=== PATIENT | female | born 1950 | race Caucasian/White ===

== ENCOUNTER 2017-11-05 07:44 | Inpatient (IN) | payer OTHER, BC ==
--- NOTE | 2017-10-22 13:02 | DIAGNOSTIC IMAGING REPORT ---
CHEST 2 VIEWS ROUTINE CLINICAL HISTORY: 67 years-old Female presenting with PRE OP TESTING, PT WENT TO LAB/SEND TO [facility]. TECHNIQUE: PA and lateral views of the chest were obtained. COMPARISON: None. FINDINGS: Atherosclerosis of the aortic arch. Cardiac silhouette normal in size. Biapical pleural parenchymal scarring greater on the right. Mildly coarsened lung markings. No focal opacity. No large effusion or pneumothorax. Osseous structures normal. Upper abdomen normal. IMPRESSION: 1. No acute cardiopulmonary disease. Electronically signed by: John Burton M.D. 10/22/2017 1:00 PM Dictated Date/Time: 10/22/2017 12:59 PM
[2017-10-22 13:12] LABS: BASO % 0.7 %; BASO ABS # 0.05 K/uL (0-0.2); EOS % 2.2 %; EOS ABS # 0.15 K/uL (0-0.5); HEMATOCRIT 41.6 % (37-47); HEMOGLOBIN 14.8 g/dL (12.0-16.0); IG# 0.02 K/uL (0.00-0.02); LYMPH % 30.8 %; LYMPH ABS # 2.14 K/uL (1.2-3.4); MEAN CELL VOLUME 94.1 fL (80-100); MEAN CORPUSCULAR HEMOGLOBIN 33.5 pg (25-34); MEAN CORPUSCULAR HGB CONC 35.6 g/dl (32-36); MEAN PLATELET VOLUME 8.6 fL (7.4-10.4); MONO % 5.8 %; NEUT % 60.2 %; NEUT ABS # 4.18 K/uL (1.4-6.5); PLATELET COUNT 217 K/uL (130-400); RED CELL DISTRIBUTION WIDTH CV 12.8 % (11.5-14.5); RED CELL DISTRIBUTION WIDTH SD 44.2 fL (36.4-46.3); WHITE BLOOD COUNT 6.94 K/uL (4.8-10.8)
[2017-10-22 13:43] LABS: BLOOD UREA NITROGEN 14 mg/dl (7-18); CALCIUM 8.9 mg/dl (8.5-10.1); CARBON DIOXIDE 28 mmol/L (21-32); CREATININE 0.72 mg/dl (0.60-1.20); GLUCOSE 99 mg/dl (70-99); POTASSIUM 3.2 mmol/L (3.5-5.1); SODIUM 143 mmol/L (136-145)
[2017-10-26 08:37] VITALS: BMI 23.0
[2017-11-05] VITALS (12 sets, daily range): BP systolic 126–164; BP diastolic 47–101; PULSE 56–92; TEMP 36.4–36.8; O2SAT 91–99; Ht 162.6 cm; Wt 60.5 kg
[~2017-11-05] VITALS: Ht 162.6 cm; Wt 60.5 kg
[~2017-11-05 07:44] MED LIST: ACET1TAB84 PO; ASPI81TA28 PO; CALC600T9 PO; CITA20TA4 PO; CTP/1 PO; DICL-201 PO; DILT120C68 PO; DIPH25CA94 PO; ENALAPRIL PO; ESTR1 PO; FERR1TAB13 PO; FLUT0.15 INTNAS; GABA-113 PO; LACTATED RINGER'S 1000ML 1,000 ML IV SCH; LEVO125T5 PO; PRLSR20 PO; TRAM-10 PO
[2017-11-05] MEDS ORDERED: CeleBREX 200 MG CAP PO STA (08:02)
[2017-11-05] MEDS ORDERED: GABAPENTIN 300 MG CAP PO STA (08:02)
[2017-11-05] MEDS ORDERED: ACETAMINOPHEN 500 MG TAB PO STA (08:02)
[2017-11-05] MEDS ORDERED: CEFAZOLIN 1000MG IV PUSH 7.5 ML IV STA (08:02)
[2017-11-05] MEDS ORDERED: NURSING VERBAL MED ORDER ONE (09:00)
[2017-11-05] MEDS ORDERED: PHENYLEPHRINE 100MCG/ML 5ML SYR IV PRN (09:00)
[2017-11-05] MEDS ORDERED: ATROPINE SULFATE 0.1 MG/ML 5ML SYR IV PRN (09:00)
[2017-11-05] MEDS ORDERED: ONDANSETRON INJ 2 MG/ML 2 ML VIAL IV PRN ×2 (09:00→13:30)
[2017-11-05] MEDS ORDERED: HYDROmorphone INJ 0.5 MG/0.5 ML SYR IV PRN (09:00)
[2017-11-05] MEDS ORDERED: EpHEDrine SULFATE INJ 50 MG/ML AMP IV PRN (09:00)
[2017-11-05] MEDS ORDERED: MIDAZOLAM HCL 1 MG/ML 2ML VIAL ONE (10:38)
[2017-11-05] MEDS ORDERED: FENTANYL CITRATE INJ 50 MCG/1 ML 2 ML VIAL ONE ×3 (10:39→12:39)
--- NOTE | 2017-11-05 10:55 | History & Physical Bridge Note ---
H&P Re-Evaluation Bridge Note: I have examined the patient, reviewed the History & Physical and in the interval since the performance of the History & Physical I have noted the following changes of clinical significance: No changes noted
--- NOTE | 2017-11-05 10:56 | History and Physical ---
History & Physical Date November 05, 2017. Chief Complaint Back and leg pain History of Present Illness The patient is a 67 year old female with complaints of back and leg pain Additional History Hepatic Disease: No Endocrine Disorder: No Kidney Disease: No Hypertension: Yes Heart Disease: No Bleeding Tendencies: No Infectious Diseases: No Allergies Coded Allergies: No Known Allergies (Unverified , 11/05/17) Home Medications Scheduled Acetaminophen (Tylenol Arthritis Ext Rel), 650 MG PO BID Aspirin (Aspirin Ec), 81 MG PO HS Calcium Carbonate-Vitamin D (Calcium + D), 1 TAB PO BID Citalopram Hydrobromide (Citalopram Hydrobromide), 0.5 TAB PO QAM Clonidine Hcl (Catapres), 0.1 MG PO BID Diclofenac (Voltaren), 75 MG PO BID Diltiazem Hcl Ext Rel (Tiazac), 120 MG PO BID Diphenhydramine Hcl (Aler-Cap), 25 MG PO BID Estradiol (Estrace), 1 MG PO QAM Ferrous Sulfate (Kp Ferrous Sulfate), 1 TAB PO QAM Gabapentin (Neurontin), 300 MG PO BID Levothyroxine Sodium (Levothyroxine Sodium), 1 TAB PO QAM Omeprazole (Prilosec), 40 MG PO QAM Tramadol (Ultram), 50 MG PO Q6H [Enalapril], 20 MG PO BID Scheduled PRN Fluticasone Propionate (Nasal) (Flonase Allergy Relief), 2 SPRAYS INTNAS QAM PRN for RN Physical Examination Skin: warm/dry, no rash Eyes: normal inspection, EOMI, sclerae normal ENT: normal ENT inspection, pharynx normal Head: normocephalic, atraumatic Neck: supple, no adenopathy, trachea midline Respiratory/Chest: lungs clear, normal breath sounds, no respiratory distress Cardiovascular: regular rate, rhythm, no edema, no murmur Abdomen / GI: normal bowel sounds, non tender Back: normal inspection Extremities: normal inspection, normal range of motion Neurologic/Psych: no motor/sensory deficits, alert, normal reflexes, oriented x 3 Diagnosis Lumbar spinal stenosis with neurogenic claudication and spondylolisthesis Plan of Treatment TLIF L4-S1
[2017-11-05] MEDS ORDERED: BUPIVACAINE 0.25% 30 ML VIAL ONE (11:15)
[2017-11-05] MEDS ORDERED: BACITRACIN 50000 UNIT VIAL ONE (11:15)
[2017-11-05] MEDS ORDERED: EpINEphrine INJ 1MG/ML AMP 1 MG/ML AMP ONE (11:16)
[2017-11-05] MEDS ORDERED: HYDROmorphone INJ 2 MG/ML SYR/VIAL ONE ×3 (12:01→14:00)
[2017-11-05] MEDS ORDERED: FLOSEAL HEMOSTATIC MATRIX 10ML TOP ONE (13:09)
[2017-11-05] MEDS ORDERED: LIDOCAINE HCL 2% 2 ML VIAL (20MG/ML) ONE (13:17)
[2017-11-05] MEDS ORDERED: DEXAMETHASONE SOD INJ 4 MG/ML VIAL ONE (13:17)
[2017-11-05] MEDS ORDERED: EpHEDrine SULFATE 50MG/5ML SYR ONE (13:17)
[2017-11-05] MEDS ORDERED: PROPOFOL IV EMULSION 10 MG/ML 20 ML VIAL ONE (13:17)
[2017-11-05] MEDS ORDERED: ROCURONIUM BROMIDE 10 MG/ML 5 ML VIAL ONE (13:17)
[2017-11-05] MEDS ORDERED: ONDANSETRON INJ 2 MG/ML 2 ML VIAL ONE (13:17)
[2017-11-05] MEDS ORDERED: NEOSTIGMINE METHYLSULFATE 1 MG/ML 10ML VIAL ONE (13:17)
[2017-11-05] MEDS ORDERED: GLYCOPYRROLATE INJ 0.2 MG/ML VIAL ONE (13:17)
[2017-11-05] MEDS ORDERED: SODIUM CHLORIDE 0.9% 1000ML 1,000 ML IV SCH (13:18)
--- NOTE | 2017-11-05 13:18 | [facility] Operative Report ---
Operative Report Operative Date November 05, 2017. Pre-Operative Diagnosis Lumbar spinal stenosis with neurogenic claudication and spondylolisthesis Post-Operative Diagnosis Same Procedure(s) Performed 1. Lumbar decompression medial facetectomies foraminotomies L3-4 L4-5 L5-S1. #2 posterior spinal fusion L4-5 L5-S1. #3 placement posterior segmental instrumentation L4-5 L5-S1. #4 interbody fusion L5-S1. #5 placement of titanium 9 x 26 mm cage L5-S1. #6 placement of locally harvested autograft in the posterior gutters. #7 placement InFUSE collagen sponge combined with master graft in the posterior gutters and ostial amp in the interbody space. Surgeon Dr. Olguin Export Clerk Surgeon(s) SARWAT Deras Estimated Blood Loss 250 Findings Severe spinal stenosis with far lateral herniated nucleus pulposus L5-S1 on the left Specimens none per surgeon Description of Procedure Patient was met with preoperatively case discussed all questions addressed. After informed consent obtained patient was taken to the operative suite underwent intubation and placed in a prone position the [facility] tablets frame. All bony promises well-padded I suspected to ensure no external pressure placed upon the. This point lumbar spine was prepped and draped in a sterile fashion. Sharp dissection with the assistance Bovie cautery was performed down to and exposing the lamina transposes L4-5 and sacral ala bilaterally. From caudocephalad fashion complete laminectomy of L5 L4 partial laminectomy of L3 is performed addressing severe lateral recess and foraminal disease. Pedicle screws were then placed in L4 L5-S1 levels bilaterally with the assistance of fluoroscopy. The probe size aimee was placed. Through a transforaminal approach on the left complete discectomy was performed in place scheduled subcortical bleeding bone and a 9 x 22 mm titanium cage filled with ostium bone graft tapped in position. Rods were then compressed locked into final position bilaterally. The transverse processes of all 4 L5 the sacral ala burred to subcortical bleeding bone. Infuse collagen sponge mesh graft and local autograft placed posterior gutters. 15 round TAM drain inserted. Incision was then closed with 1 Vicryl fascia 2-0 Vicryl substantially 4-0 Monocryl for final skin closure. Steri-Strips sterile dressing placed. Patient will continue PACU stable discrete please note Ana Laura Art present throughout the entire procedure involved in patient positioning complex portions of the surgery and fashion closure. I attest to the content of the Intraoperative Record and any orders documented therein. Any exceptions are noted below.
--- NOTE | 2017-11-05 13:20 | DIAGNOSTIC IMAGING REPORT ---
LUMBAR SPINE 2 OR 3 VIEW CLINICAL HISTORY: L4-S1 TRANSFORAMINAL LUMBAR INTERBODY FUSION COMPARISON STUDY: No previous studies for comparison. Fluoroscopy time: 18 seconds. FINDINGS: 2 fluoroscopic images demonstrate an L5-S1 discectomy with interbody spacer placement. Posterior decompression is noted. There are bilateral pedicle screws at the L4, L5 and S1 levels with interconnecting rods. IMPRESSION: Fluoroscopic images demonstrating an L5-S1 discectomy and L4-S1 bilateral pedicle screw fusion. Electronically signed by: Rob Zacarias M.D. 11/05/2017 1:19 PM Dictated Date/Time: 11/05/2017 1:18 PM
[2017-11-05] MEDS ORDERED: FLUTICASONE PROPIONATE NA SPR 16 GM BTL PRN (13:30)
[2017-11-05] MEDS ORDERED: LORAZEPAM 0.5 MG TAB PO PRN (13:30)
[2017-11-05] MEDS ORDERED: DO NOT ADMINISTER PNEUMOCOCCAL VACCINE PRN (13:30)
[2017-11-05] MEDS ORDERED: ALUMINUM/MAGNESIUM SUSP 30 ML UDC PO PRN (13:30)
[2017-11-05] MEDS ORDERED: ACETAMINOPHEN IV 100 ML IV PRN (13:30)
[2017-11-05] MEDS ORDERED: BISACODYL 10 MG SUPP PR PRN (13:30)
[2017-11-05] MEDS ORDERED: PROMETHAZINE HCL INJ 12.5 MG in SODIUM CHLORIDE 0.9% 50ML 50 ML IV PRN (13:30)
[2017-11-05] MEDS ORDERED: MAGNESIUM HYDROXIDE SUSP 30 ML UDC PO PRN (13:30)
[2017-11-05] MEDS ORDERED: DO NOT ADMINISTER FLU VACCINE PRN (13:30)
[2017-11-05] MEDS ORDERED: ACETAMINOPHEN 500 MG TAB PO PRN (13:30)
[2017-11-05] MEDS ORDERED: hydrOXYzine HCL 25 MG TAB PO PRN (13:30)
[2017-11-05] MEDS ORDERED: SOD PHOSPHATE/SOD BIPHOSPHATE ENEMA 132 ML BTL PR PRN (13:30)
[2017-11-05] MEDS ORDERED: METOCLOPRAMIDE HCL INJ 5 MG/ML 2 ML VIAL IV PRN (13:30)
[2017-11-05] MEDS ORDERED: NALOXONE HCL 0.4 MG/1 ML VIAL/CARP IV PRN ×2 (13:30)
[2017-11-05] MEDS ORDERED: LORAZEPAM INJ 0.5 MG in SYRINGE 0 ML IV PRN (13:30)
[2017-11-05] MEDS ORDERED: FAMOTIDINE 20 MG TAB PO PRN (13:30)
[2017-11-05] MEDS ORDERED: HYDROmorphone HCL 0.5MG/ML 50 ML CASSETTE ONE (13:32)
--- NOTE | 2017-11-05 14:15 | Anesthesiology Progress Note ---
Anesthesia Post Op Note Date & Time November 05, 2017 at 14:15 Vital Signs Pain Intensity: 4 Vital Signs Past 12 Hours Date Time Temp Pulse Resp B/P (MAP) Pulse Ox O2 Delivery O2 Flow Rate FiO2 11/05/17 13:50 66 16 165/76 99 Oxymask 10 11/05/17 13:40 66 16 139/91 99 Oxymask 10 11/05/17 13:30 36.7 68 14 143/71 100 Oxymask 10 11/05/17 08:16 94 Room Air 11/05/17 08:15 36.5 56 18 133/47 11/05/17 08:11 36.5 56 18 133/47 Notes Mental Status: alert / awake / arousable, participated in evaluation Pt Amnestic to Procedure: Yes Nausea / Vomiting: adequately controlled Pain: adequately controlled Airway Patency, RR, SpO2: stable & adequate BP & HR: stable & adequate Hydration State: stable & adequate Anesthetic Complications: no major complications apparent
[2017-11-05] MEDS: HYDROmorphone HCL 0.5MG/ML 50 ML CASSETTE IV PRN ×3 (14:43→23:10)
[2017-11-05] MEDS: TRAMADOL HCL 50 MG TAB PO SCH ×2 (16:00→22:00)
[2017-11-05] MEDS: SODIUM CHLORIDE 0.9% 1000ML 1,000 ML IV SCH ×2 (19:58→20:02)
[2017-11-05] MEDS: CEFAZOLIN IV 1,000 MG in SYRINGE 0 ML IV SCH (20:02)
[2017-11-05] MEDS: GABAPENTIN 300 MG CAP PO SCH (21:29)
[2017-11-05] MEDS: DOCUSATE SODIUM/SENNA 50/8.6MG TAB PO SCH (21:29)
[2017-11-05] MEDS: ASPIRIN 81 MG ECTAB PO SCH (21:29)
[2017-11-05] MEDS: ENALAPRIL MALEATE 10 MG TAB PO SCH (21:29)
[2017-11-05] MEDS: CLONIDINE HCL 0.1 MG TAB PO SCH (21:29)
[2017-11-05] MEDS: DILTIAZEM HCL 120 MG EXT REL CAP PO SCH (21:30)
[2017-11-06] MEDS: SODIUM CHLORIDE 0.9% 1000ML 1,000 ML IV SCH (02:35)
[2017-11-06 03:05] VITALS: BP 136/65; PULSE 78; TEMP 36.6; O2SAT 91
[2017-11-06] MEDS: TRAMADOL HCL 50 MG TAB PO SCH ×4 (04:00→21:52)
[2017-11-06] MEDS: CEFAZOLIN IV 1,000 MG in SYRINGE 0 ML IV SCH (04:21)
[2017-11-06] MEDS ORDERED: NURSING DECISION MEDICATION ORDER SCH (04:30)
[2017-11-06] MEDS: LEVOTHYROXINE 125 MCG TAB PO SCH (05:51)
[2017-11-06] MEDS ORDERED: DC PCA ONE (06:00)
[2017-11-06] MEDS ORDERED: OXYCODONE HCL IR 5 MG TAB (IMMEDIATE RELEASE) PO PRN (06:00)
[2017-11-06] MEDS ORDERED: HYDROmorphone INJ 0.5 MG/0.5 ML SYR IV PRN (06:00)
[2017-11-06 06:17] LABS: BASO % 0.1 %; BASO ABS # 0.01 K/uL (0-0.2); HEMATOCRIT 32.1 % (37-47); IG# 0.03 K/uL (0.00-0.02); LYMPH ABS # 0.59 K/uL (1.2-3.4); MEAN CELL VOLUME 94.4 fL (80-100); MEAN CORPUSCULAR HEMOGLOBIN 32.4 pg (25-34); MEAN CORPUSCULAR HGB CONC 34.3 g/dl (32-36); MEAN PLATELET VOLUME 8.4 fL (7.4-10.4); MONO % 5.9 %; MONO ABS # 0.69 K/uL (0.11-0.59); NEUT % 88.7 %; NEUT ABS # 10.44 K/uL (1.4-6.5); PLATELET COUNT 167 K/uL (130-400); RED CELL DISTRIBUTION WIDTH CV 12.8 % (11.5-14.5); RED CELL DISTRIBUTION WIDTH SD 44.2 fL (36.4-46.3); WHITE BLOOD COUNT 11.76 K/uL (4.8-10.8)
[2017-11-06 06:53] LABS: CALCIUM 7.9 mg/dl (8.5-10.1); CREATININE 0.67 mg/dl (0.60-1.20); POTASSIUM 3.9 mmol/L (3.5-5.1)
[2017-11-06 07:13] VITALS: BP 120/67; PULSE 71; TEMP 37; O2SAT 96
--- NOTE | 2017-11-06 08:31 | Anesthesiology Progress Note ---
Anesthesia Post Op Note Date & Time November 06, 2017 at 08:31 Vital Signs Pain Intensity: 3.0 Vital Signs Past 12 Hours Date Time Temp Pulse Resp B/P (MAP) Pulse Ox O2 Delivery O2 Flow Rate FiO2 11/06/17 07:27 Nasal Cannula 2.0 11/06/17 07:13 37.0 71 16 120/67 (84) 96 Nasal Cannula 2.0 11/06/17 03:05 36.6 78 18 136/65 (88) 91 Nasal Cannula 1.0 11/05/17 23:15 Room Air 11/05/17 23:06 36.6 71 18 138/68 (91) 91 Room Air 11/05/17 21:31 92 164/101 (122) Notes Mental Status: alert / awake / arousable, participated in evaluation Pt Amnestic to Procedure: Yes Nausea / Vomiting: adequately controlled Pain: adequately controlled Airway Patency, RR, SpO2: stable & adequate BP & HR: stable & adequate Hydration State: stable & adequate Anesthetic Complications: no major complications apparent
[2017-11-06] MEDS: ESTRADIOL 1 MG TAB PO SCH (08:44)
[2017-11-06] MEDS: CLONIDINE HCL 0.1 MG TAB PO SCH ×2 (08:44→21:21)
[2017-11-06] MEDS: DILTIAZEM HCL 120 MG EXT REL CAP PO SCH ×2 (08:44→21:21)
[2017-11-06] MEDS: PANTOprazole SOD 40 MG TAB PO SCH (08:44)
[2017-11-06] MEDS: GABAPENTIN 300 MG CAP PO SCH ×2 (08:45→21:21)
[2017-11-06] MEDS: ENALAPRIL MALEATE 10 MG TAB PO SCH ×2 (08:45→21:21)
[2017-11-06] MEDS: CITALOPRAM 20 MG TAB PO SCH (08:45)
--- NOTE | 2017-11-06 13:19 | Progress Note ---
Progress Note Date of Service November 06, 2017. Progress Note Patient's back pain is controlled her left leg symptoms markedly improved. Vital signs stable. On exam she is stable at the bedside is good strength testing appears comfortable. Assessment status post lumbar depression fusion per plan at this time we will initiate physical therapy and consider discharge home this weekend.
[2017-11-06 15:56] VITALS: BP 152/73; PULSE 68; TEMP 36.5; O2SAT 92
[2017-11-06 20:36] VITALS: BP 135/71; PULSE 80; TEMP 37; O2SAT 93
[2017-11-06] MEDS: DOCUSATE SODIUM/SENNA 50/8.6MG TAB PO SCH (21:20)
[2017-11-06] MEDS: ASPIRIN 81 MG ECTAB PO SCH (21:21)
[2017-11-06 23:39] VITALS: BP 130/68; PULSE 68; TEMP 37.4; O2SAT 90
[2017-11-07] MEDS: TRAMADOL HCL 50 MG TAB PO SCH ×2 (04:00→09:54)
[2017-11-07] MEDS: LEVOTHYROXINE 125 MCG TAB PO SCH (05:42)
[2017-11-07] MEDS: POLYETHYLENE (MIRALAX) 17 GM PACK PO SCH ×2 (05:43→12:00)
[2017-11-07 06:36] VITALS: BP 149/77; PULSE 71; TEMP 37.3; O2SAT 85
[2017-11-07 06:37] VITALS: O2SAT 93
[2017-11-07] MEDS: CITALOPRAM 20 MG TAB PO SCH (08:54)
[2017-11-07] MEDS: PANTOprazole SOD 40 MG TAB PO SCH (08:54)
[2017-11-07] MEDS: ESTRADIOL 1 MG TAB PO SCH (08:54)
[2017-11-07] MEDS: DILTIAZEM HCL 120 MG EXT REL CAP PO SCH (08:55)
[2017-11-07] MEDS: GABAPENTIN 300 MG CAP PO SCH (08:55)
[2017-11-07] MEDS: ENALAPRIL MALEATE 10 MG TAB PO SCH (08:55)
[2017-11-07] MEDS: CLONIDINE HCL 0.1 MG TAB PO SCH (09:51)
[2017-11-07] MEDS ORDERED: RXC5 PO (11:10)
--- NOTE | 2017-11-07 11:11 | Discharge Instructions ---
Discharge Instructions Date of Service November 07, 2017. Admission Reason for Admission: Lumbar Spinal Stenosis Discharge Discharge Diagnosis / Problem: lumbar stenosis Discharge Goals Goal(s): Improve function Activity Recommendations Activity Limitations: per Instructions/Follow-up section . Instructions / Follow-Up Instructions / Follow-Up ACTIVITY RECOMMENDATIONS: SELF CARE INSTRUCTIONS AFTER THORACIC/LUMBAR FUSIONS 1. You may walk to your tolerance. It is good exercise for your legs and back. Expect some back and intermittent leg aches and pains. 2. You may perform "counter-top" level activities (make a sandwich, marcello with a project, etc.). 3. No bending or lifting of more than 10 pounds or back twisting of any nature (roll like a log when turning in bed). 4. You may ride in a car for 20-30 minutes at a time. No driving until after your first visit with your doctor. 5. Frequent changes of position and restricting sitting to 30 minutes at a time will help limit the amount of back spasms and stiffness you may experience. 6. You may discontinue the use of ambulatory aids (cane, crutches, etc.) once your strength and confidence allow. 7. You may insurance processor the shower and let water strike your incision when you arrive home at least once daily. Do not take a tub bath, sit in a hot tub or go into a swimming pool until after your first recheck in the office. SPECIAL CARE INSTRUCTIONS: VERY IMPORTANT TO READ AND REVIEW A. Your surgical incision has been closed with a cosmetic suture under the skin that will dissolve in about 6 weeks. In 14 days, you can use a pair of clean scissors and cut the suture that is left outside of the skin at the ends of your incision. 1. The small skin tapes can be removed 7 days after surgery if they have not fallen off by that point. 2. You may keep the wound open to air as much as possible to promote healing after post-op day number 5 unless told otherwise by your doctor. 3. If you think the wound looks like it is becoming infected (redness or worsening drainage) and/or you are experiencing fever, chill or worsening back pain and muscle spasms, contact the office so that we may evaluate you as soon as possible. B. Complications are uncommon, but please contact us if you have any signs or symptoms of: 1. wound infection (fever higher than 102.5 degrees F, redness, separation of wound, drainage, or increasing pain from the incision) 2. blood clots in legs (pain, swelling, redness and warmth in legs) 3. urinary tract infection (fever higher than 102.5 degrees F, burning upon urination or increased frequency of urination) 4. nerve problems (inability to walk on your toes or heels, numbness, loss of bowel or bladder control) 5. any other symptoms that concern you C. Please call the office at if you have any concerns or questions about your operation or recovery. D. No smoking! Smoking drastically decreases the chance of a solid fusion. E. Do not take any anti-inflammatory medications (Indocin, Advil, Motrin, Aspirin, Naprosyn, etc.) as these may inhibit the chance of a solid fusion. Tylenol is okay to take for pain. MANAGING PAIN AFTER SPINAL SURGERY 1. Narcotic medication is intended for short-term use and will be provided for surgical pain. Surgical pain usually lasts for a period of 4-6 weeks. Narcotic medication includes Percocet, Vicodin, Darvocet, Tylenol #3 or Lortab. 2. Longer-term pain is more appropriately treated with non-narcotic medication such as Tylenol ES. 3. Muscle spasm is not appropriately treated with narcotics. Muscle relaxers such as Soma, Flexeril or Skelaxin can be used along with Tylenol ES. 4. Remember that we all live with some "aches and pains". This is not unusual or uncommon after an injury or as we get older. a. Back pain is expected and may include muscle spasms for 4 to 6 weeks after surgery. The pain should gradually improve. If the pain worsens for no apparent reason, please contact the office. b. Intermittent leg pain may also be experienced and should not be concerned about unless it worsens for no apparent reason. If so, please contact the office. 5. We will provide appropriate medication within the normal guidelines of their prescribed use. We will also be very cautious and aware of potential abuse and extended duration of patients' medication needs. a. Pain medications are for your comfort and to assist with sleep and rest so that the tissue can heal. They are not provided in order to return to normal activity and should not be used through the day. To do so or worsening pain at night can result from ongoing tissue damage and development of tolerance to the prescribed medicine. 6. Please allow 2-3 days to process refills. Prescriptions will not be mailed but must be picked up at the office. FOLLOW UP VISIT: Keep your scheduled follow-up appointment. Any questions, please call the office at . Current Hospital Diet Patient's current hospital diet: Regular Diet Discharge Diet Recommended Diet: Regular Diet Procedures Procedures Performed: 1. Lumbar decompression medial facetectomies foraminotomies L3-4 L4-5L5-S1. # 2 posterior spinal fusion L4-5 L5-S1. #3 placement posteriorsegmental instrumentation L4-5 L5-S1. #4 interbody fusion L5-S1. #5placement of titanium 9 x 26 mm cage L5-S1. #6 placement of locallyharvested autograft in the posterior gutters. #7 placement InFUSEcollagen sponge combined with master graft in the posterior gutters andostial amp in the interbody space. Pending Studies Studies pending at discharge: no Medical Emergencies . Who to Call and When: Medical Emergencies: If at any time you feel your situation is an emergency, please call 911 immediately. . Non-Emergent Contact Non-Emergency issues call your: Primary Care Provider . "Provider Documentation" section prepared by Mat Olguin. .
--- NOTE | 2017-11-07 11:18 | Discharge Summary ---
Orthopedic Discharge Summary Admission Date/Reason November 05, 2017 at 13:22 Lumbar Spinal Stenosis. Discharge Date/Disposition November 07, 2017 Home Diagnosis Principal Diagnosis: Lumbar spinal stenosis Admission Physical Exam As per Admitting History & Physical. Hospital Course Patient underwent lumbar depression fusion tolerated as well as taken to the orthopedic floor postoperatively. Postop day #1 she was up and amatory leg symptoms markedly improved progress status post 2 postop day #2 and subsequent discharge home. Discharge orders instructions found in the chart for further review. Discharge Instructions Please refer to the electronic Patient Visit Report (Discharge Instructions) for additional information.
[2017-11-07 12:08] VITALS: BP 149/77; PULSE 71; TEMP 37.3; O2SAT 93
== END 2017-11-07 12:41 | disposition home or self-care (01) | DRG 455 ==
LOC: C.ACU 07:44 → C.3E 13:22 → ENRESERV 13:47
PROVIDERS: ADMIT Orthopaedic Surgery Orthopaedic Surgery of the Spine; ATTEND Orthopaedic Surgery Orthopaedic Surgery of the Spine
PROC: 0ST40ZZ Resection of Lumbosacral Disc, Open Approach (ICD-10-PCS; principal; 2017-11-05 10:15)
PROC: 0SG0071 Fusion of Lumbar Vertebral Joint with Autologous Tissue Substitute, Posterior Approach, Posterior Column, Open Approach (ICD-10-PCS; principal; 2017-11-05 10:15)
PROC: 0SG30AJ Fusion of Lumbosacral Joint with Interbody Fusion Device, Posterior Approach, Anterior Column, Open Approach (ICD-10-PCS; principal; 2017-11-05 10:15)
PROC: 0SG3071 Fusion of Lumbosacral Joint with Autologous Tissue Substitute, Posterior Approach, Posterior Column, Open Approach (ICD-10-PCS; principal; 2017-11-05 10:15)
DX: M48.062 Spinal stenosis, lumbar region with neurogenic claudication (principal); M51.27 Other intervertebral disc displacement, lumbosacral region; M43.16 Spondylolisthesis, lumbar region; I10 Essential (primary) hypertension; E89.0 Postprocedural hypothyroidism; F32.9 Major depressive disorder, single episode, unspecified; M19.90 Unspecified osteoarthritis, unspecified site; F17.200 Nicotine dependence, unspecified, uncomplicated; Z85.828 Personal history of other malignant neoplasm of skin; Z79.1 Long term (current) use of non-steroidal anti-inflammatories (NSAID); Z79.82 Long term (current) use of aspirin; Z79.890 Hormone replacement therapy; Z79.891 Long term (current) use of opiate analgesic; Z79.899 Other long term (current) drug therapy; Z90.710 Acquired absence of both cervix and uterus; Z90.722 Acquired absence of ovaries, bilateral; Z90.79 Acquired absence of other genital organ(s); Z98.41 Cataract extraction status, right eye; Z98.42 Cataract extraction status, left eye; Z98.890 Other specified postprocedural states

== ENCOUNTER 2019-12-12 11:37 | Inpatient (IN) ==
[2019-11-29 11:30] LABS: Appearance Urine Clear (Clear); Bilirubin Urine Negative (Negative); Blood Urine Negative (Negative); Color Urine Yellow; Glucose Urine UA Negative (Negative); Ketones Urine Negative (Negative); Leukocyte Esterase Urine Negative (Negative); Nitrite Urine Negative (Negative); Protein Urine Negative (Negative); Specific Gravity Urine 1.018 (1.000-1.030); Urobilinogen Urine Negative (Negative); pH Urine 5.5 (4.5-7.5)
[2019-11-29 11:33] LABS: Basophils # (auto) 0.03 K/uL (0-0.2); Basophils % (auto) 0.4 %; Eosinophils # (auto) 0.08 K/uL (0-0.5); Eosinophils % (auto) 1.1 %; Hematocrit (blood only) 38.5 % (37-47); Hemoglobin 13.4 g/dL (12.0-16.0); Immature Granulocytes # (auto) 0.01 K/uL (0.00-0.02); Immature Granulocytes % (auto) 0.1 %; Lymphocytes # (auto) 1.58 K/uL (1.2-3.4); Lymphocytes % (auto) 22.3 %; Mean Corpuscular Hemoglobin 32.9 pg (25-34); Mean Corpuscular Hgb Conc 34.8 g/dL (32-36); Mean Corpuscular Volume 94.6 fL (80-100); Mean Platelet Volume 8.6 fL (7.4-10.4); Monocytes # (auto) 0.57 K/uL (0.11-0.59); Neutrophils # (auto) 4.82 K/uL (1.4-6.5); Neutrophils % (auto) 68.1 %; Platelet Count 183 K/uL (130-400); RDW Coefficient of Variation 13.9 % (11.5-14.5); RDW Standard Deviation 48.1 fL (36.4-46.3); Red Blood Count 4.07 M/uL (4.2-5.4); White Blood Count 7.09 K/uL (4.8-10.8)
[2019-11-29 11:42] LABS: Prothrombin Time 10.2 Seconds (9.0-12.0)
[2019-11-29 11:59] LABS: BUN Creatinine Ratio 25.1 (10-20); Blood Urea Nitrogen 16 mg/dl (7-18); Calcium 9.1 mg/dl (8.5-10.1); Carbon Dioxide 25 mmol/L (21-32); Chloride 109 mmol/L (98-107); Est GFR (African American) 105.3; Est GFR (Non-African American) 90.9; Glucose 81 mg/dl (70-99); Potassium 3.7 mmol/L (3.5-5.1); Sodium 140 mmol/L (136-145)
--- NOTE | 2019-12-08 10:31 | Anesthesiology Consultation ---
Date of Service December 08, 2019 Assessment & Plan (1) Encounter for pre-operative examination: COVID Status: As of 12/07 nurse assessment, patient denies travel to endemic area, known exposure/sick contacts, or symptoms of COVID19. Preoperative COVID19 testing completed on 12/06, results pending. Chart Review Chart Review: Acceptable Risk for Surgery and Patient NOT seen in Pre Admission Testing History Surgery Operation Date: 12/12/19 13:25 Proposed Procedures p L3-L4 Decompression, L3-L5 Fusion, L4-S1 Hardware Removal, Spinal Cord Monitoring - Mat Olguin, Height/Weight Height: 5 ft 5 in Weight: 60.781 kg Allergies Allergy/AdvReac Type Severity Reaction Status Date / Time No Known Allergies Allergy Unverified 12/08/19 08:50 Medications Home Medications Medication Instructions Recorded Confirmed Last Taken acetaminophen 650 mg PO Q12H 12/08/19 12/08/19 Unknown aspirin [Aspirin Low Dose] 81 mg PO HS 12/08/19 12/08/19 Unknown calcium carbonate-vitamin D3 1 tab PO BID 12/08/19 12/08/19 Unknown [Calcium 500 + D] citalopram 20 mg PO QAM 12/08/19 12/08/19 Unknown clonidine HCl 0.1 mg PO BID 12/08/19 12/08/19 Unknown diclofenac sodium 75 mg PO BID 12/08/19 12/08/19 Unknown diltiazem HCl 120 mg PO BID 12/08/19 12/08/19 Unknown diphenhydramine HCl 25 mg PO BID 12/08/19 12/08/19 Unknown enalapril maleate 20 mg PO BID 12/08/19 12/08/19 Unknown estradiol 1 mg PO DAILY 12/08/19 12/08/19 Unknown fluticasone propionate [Flonase 2 spray INTRANASAL QAM 12/08/19 12/08/19 Unknown Allergy Relief] levothyroxine 125 mcg PO QAM 12/08/19 12/08/19 Unknown omeprazole 40 mg PO QAM 12/08/19 12/08/19 Unknown oxycodone 5 mg PO BID PRN 12/08/19 12/08/19 Unknown Past Medical History Medical History Anxiety Chronic back pain Degenerative disc disease Depression GERD (gastroesophageal reflux disease) Hx of basal cell carcinoma Hx of squamous cell carcinoma of skin Hx of thyroid cancer Hypertension Hypothyroidism Past Family History Family History Other No family history of adverse response to anesthesia Past Surgical History Surgical History History of cataract surgery bilateral History of colonoscopy History of surgical removal of skin lesion History of thyroidectomy, subtotal S/P epidural steroid injection S/P lumbar spinal fusion S/P radioactive iodine thyroid ablation S/P ZEE-BSO Social History Smoking Status: Current every day smoker tobacco type: cigarettes Smoking cigarettes per day: 10 Do You Dip or Chew Tobacco: No Hx Alcohol Use: No Hx Substance Use: No substance use type: does not use Testing Laboratory Results 11/29/19 10:45 11/29/19 10:45 PT 10.2 Seconds (9.0-12.0) 11/29/19 10:45 INR 1.0 (0.9-1.1) 11/29/19 10:45 Urine Color Yellow 11/29/19 10:45 Urine Appearance Clear (Clear) 11/29/19 10:45 Urine pH 5.5 (4.5-7.5) 11/29/19 10:45 Ur Specific [place] 1.018 (1.000-1.030) 11/29/19 10:45 Urine Protein Negative (Negative) 11/29/19 10:45 Urine Glucose (UA) Negative (Negative) 11/29/19 10:45 Urine Ketones Negative (Negative) 11/29/19 10:45 Urine Nitrite Negative (Negative) 11/29/19 10:45 Ur Leukocyte Esterase Negative (Negative) 11/29/19 10:45 11/29/19 10:45 Urine Culture - Final Urine,Clean Catch No growth - less than 1,000 colonies/mL. Electrocardiogram Date: 11/29/19 Findings: + NSR @ (68bpm) Minimal voltage criteria for LVH, may be normal variant. No significant change from 10/22/17. Chest X-Ray Date: 11/29/19 Findings: + NAD
[~2019-12-12 11:37] MED LIST changes: -ACET1TAB84 PO; +ACETAMINOPHEN 500 MG TAB PO SCH; -ASPI81TA28 PO; -CALC600T9 PO; +CEFAZOLIN 1000MG 1,000 MG/7.5 ML SYR IV SCH; -CITA20TA4 PO; -CTP/1 PO; +CeleBREX 200 MG CAP PO SCH; -DICL-201 PO; -DILT120C68 PO; -DIPH25CA94 PO; -ENALAPRIL PO; -ESTR1 PO; -FERR1TAB13 PO; -FLUT0.15 INTNAS; -GABA-113 PO; +GABAPENTIN 300 MG CAP PO SCH; -LACTATED RINGER'S 1000ML 1,000 ML IV SCH; -LEVO125T5 PO; +LR 15ML/HR IV SCH; -PRLSR20 PO; -TRAM-10 PO
[2019-12-12] MEDS ORDERED: ONDANSETRON INJ 2 MG/ML 2 ML VIAL ONE (12:05)
[2019-12-12] MEDS ORDERED: GLYCOPYRROLATE 0.2 MG/ML VIAL ONE (12:05)
[2019-12-12] MEDS ORDERED: LIDOCAINE HCL 2% 2 ML VIAL/AMP(20MG/ML) INFIL ONE (12:05)
[2019-12-12] MEDS ORDERED: NEOSTIGMINE METHYLSULFATE 1 MG/ML 10ML VIAL ONE (12:05)
[2019-12-12] MEDS ORDERED: MIDAZOLAM HCL 1 MG/ML 2ML VIAL ONE (12:05)
[2019-12-12] MEDS ORDERED: DEXAMETHASONE SOD INJ 4 MG/ML VIAL ONE (12:05)
[2019-12-12] MEDS ORDERED: PROPOFOL IV EMULSION 10 MG/ML 20 ML VIAL IV ONE (12:05)
[2019-12-12] MEDS ORDERED: fentaNYL citrate 100 MCG/2 ML VIAL ONE ×2 (12:05→15:45)
--- NOTE | 2019-12-12 12:31 | History & Physical Bridge Note ---
Date of Service December 12, 2019 History & Physical Bridge Note I have examined the patient, reviewed the History & Physical and in the interval since the performance of the History & Physical I have noted the following changes of clinical significance: no changes noted
--- NOTE | 2019-12-12 12:32 | History & Physical Report ---
Date of Service December 12, 2019 Assessment & Plan (1) Lumbar stenosis with neurogenic claudication: L3-4 decompression, L3-5 fusion, L4-S1 hardware removal Present on Admission?: Yes History of Present Illness Chief Complaint: Back and leg pain Primary Care Provider: Alejandro Pang, DO This is a 69-year-old female well-known to me that presents with worsening back and leg pain with weakness. Subsequently she is here for surgical intervention. Allergies Allergy/AdvReac Type Severity Reaction Status Date / Time No Known Allergies Allergy Unverified 12/12/19 12:25 Home Medications Home Medications Medication Instructions Recorded Confirmed Type acetaminophen 650 mg PO Q12H 12/08/19 12/08/19 History aspirin [Aspirin Low Dose] 81 mg PO HS 12/08/19 12/08/19 History calcium carbonate-vitamin D3 1 tab PO BID 12/08/19 12/08/19 History [Calcium 500 + D] citalopram 20 mg PO QAM 12/08/19 12/08/19 History clonidine HCl 0.1 mg PO BID 12/08/19 12/08/19 History diclofenac sodium 75 mg PO BID 12/08/19 12/08/19 History diltiazem HCl 120 mg PO BID 12/08/19 12/08/19 History diphenhydramine HCl 25 mg PO BID 12/08/19 12/08/19 History enalapril maleate 20 mg PO BID 12/08/19 12/08/19 History estradiol 1 mg PO DAILY 12/08/19 12/08/19 History fluticasone propionate [Flonase 2 spray INTRANASAL QAM 12/08/19 12/08/19 History Allergy Relief] levothyroxine 125 mcg PO QAM 12/08/19 12/08/19 History omeprazole 40 mg PO QAM 12/08/19 12/08/19 History oxycodone 5 mg PO BID PRN 12/08/19 12/08/19 History Past Med/Surg History Medical History Anxiety Chronic back pain Degenerative disc disease Depression GERD (gastroesophageal reflux disease) Hx of basal cell carcinoma Hx of squamous cell carcinoma of skin Hx of thyroid cancer Hypertension Hypothyroidism Surgical History History of cataract surgery bilateral History of colonoscopy History of surgical removal of skin lesion History of thyroidectomy, subtotal S/P epidural steroid injection S/P lumbar spinal fusion S/P radioactive iodine thyroid ablation S/P ZEE-BSO Family History Other No family history of adverse response to anesthesia Social History Preferred Language: Haitian Communication Ability: Effective Phys Ther Required: No Beliefs That Will Affect Care: None Current Living Situation: Spouse Other Information That Helps Us Care for You: No Feels Safe at Home: Yes Safety Concerns: Feels Safe At This Time Smoking Status: Current every day smoker Tobacco Type: cigarettes ; Cigarettes Per Day: 10 ; Do You Dip or Chew Tobacco: No ; Second Hand Exposure: Yes ; Tobacco Cessation Education Requested by Patient: No Hx Alcohol Use: No Hx Substance Use: No Physical Exam Physical Exam: Patient is alert and oriented with weakness to the right quad. Heart is regular rhythm. Lungs clear to auscultation. Results & Data Vital Signs (Past 12 Hours) Vital Signs Temp Pulse Resp BP Pulse Ox 12/12/19 12:28 36.8 C 61 18 148/65 H 96
[2019-12-12] MEDS ORDERED: BUPIVACAINE 0.5 % 5 MG/1 ML MPF 30ML VIAL ONE (12:46)
[2019-12-12] MEDS ORDERED: BACITRACIN INJ 50,000 UNIT VIAL ONE (12:46)
[2019-12-12] MEDS ORDERED: EPINEPHrine INJ 1 MG/ML AMP ONE (12:47)
[2019-12-12] MEDS ORDERED: HYDROmorphone INJ 2 MG/ML SYR/VIAL ONE (13:31)
[2019-12-12] MEDS ORDERED: FLOSEAL HEMOSTATIC MATRIX 10ML TOP ONE (14:05)
[2019-12-12] MEDS ORDERED: ROCURONIUM BROMIDE 10 MG/ML 5 ML VIAL IV ONE (14:13)
--- NOTE | 2019-12-12 14:57 | Operative Report ---
Post Operative Report Pre & Post Diagnosis Operation Date: 12/12/19 13:25 Pre-Op Diagnosis: Lumbar Spinal Stenosis with Neurogenic Claudication L3-S1; Previous Fusion L4-S1 Post-Op Diagnosis: Lumbar Spinal Stenosis with Neurogenic Claudication L3-S1; Previous Fusion L4-S1 I identified the patient and participated in the time-out.: Yes Procedure Operation Date: 12/12/19 13:25 Actual Procedures #1 removal of posterior instrumentation L4-L5 and S1 bilaterally. #2 exploration of fusion L4-5 L5-S1. #3 lumbar decompression with bilateral medial facetectomies and foraminotomies L2-3 and L3-4. #4 posterior spinal fusion L3- 4. #5 placement posterior instrumentation L3-S1. #6 interbody fusion L3-4. #7 placement of peek cage 9 x 22 mm at L3-4. #8 placement locally harvested morselized autograft in the posterior lateral gutters #9 placement infuse collagen sponge combined master graft in the posterior lateral gutters and ostial amp interbody space. Surgeon Mat Olguin, Director Behavioral Health Ana Laura Art Estimated Blood Loss 80 Findings Consistent with Post-Op Diagnosis Specimens None Indications This is a 69-year-old female known to me the presents with marked decline in status. After failing course of nonoperative care she is here for the above- mentioned procedure. Description of Procedure Patient was met with preoperatively case discussed all questions were addressed by them and patient was taken back to op suite underwent intubation placed in a prone position the Socrates table on top of the Dillan frame. All bony prominences were well-padded eyes inspected to ensure no external pressure placed upon them. This point the lumbar spine was prepped and draped in normal sterile fashion. Sharp dissection with the assistance of Bovie cautery was performed down to and exposing the lamina of L3 and the transverse process L3 and instrumentation at L4-L5 and S1 levels bilaterally. Then proceeded move the hardware bilaterally exploring the fusion mass at L4-L5 and S1. Nohelia appreciated the maturity of bone graft in the gutters but I did not feel entirely solid. Then performed complete laminectomy of L3 partial laminectomy of L2 including bilateral medial facetectomies foraminotomies as well addressing massive muscle free disc material that had migrated caudally on the right. After complete decompression pedicle screws were placed in L3-L4-L5 and S1 levels bilaterally with assistance of fluoroscopy and appropriately sized aimee placed. By way of a transforaminal approach on the right a discectomy of L3-4 was performed endplates curetted to subcortical bleeding bone and a 9 x 22 mm peek cage filled with osteo-bone graft tapped in position. Rods were then locked into final position bilaterally. The transverse processes of L3 and L4 were burred to subcortical bleeding bone. Infuse collagen sponge master graft local autograft was placed in the posterior lateral gutters. 15 round TAM drain inserted. Incision was then closed with 1 Vicryl the fascia 2-0 Vicryl subcutaneously and 4 Monocryl for final skin closure. Steri-Strip sterile opal ssings placed. Patient waken taken PACU stable condition. Please note spinal cord monitoring was utilized that the procedure no changes noted. Lastly Ana Laura Art was present at the entire procedure involved the patient positioning complex portions of the surgery and final skin closure. I attest to the content of the Intraoperative Record and any orders documented therein. Any exceptions are noted below.
--- NOTE | 2019-12-12 15:16 | Fluoroscopy Report ---
FL lumbar spine 2-3V CLINICAL HISTORY: L4-S1 REMOVE HARDWARE/L3-4 DECOPRESSION/L3-5 FUSION/INTERBOD COMPARISON STUDY: 11/05/2017 FLUOROSCOPY TIME: 4 seconds NUMBER OF FLUOROSCOPIC IMAGES: 2 FINDINGS: Image intensifier support for hardware removal and L3-L5 fusion. IMPRESSION: Image intensifier support for hardware removal and decompression and fusion ACT 112: Negative or not required by law. The above report was generated using voice recognition software. It may contain grammatical, syntax or spelling errors. Electronically signed by: Messi Cramer M.D. 12/12/2019 3:15 PM
[2019-12-12] MEDS ORDERED: ONDANSETRON INJ 2 MG/ML 2 ML VIAL IV PRN ×2 (15:50→16:25)
[2019-12-12] MEDS ORDERED: ATROPINE SULFATE 0.1 MG/ML 10ML SYR IV PRN (15:50)
[2019-12-12] MEDS ORDERED: ePHEDrine sulfate 50 MG/ML AMP IV PRN (15:50)
[2019-12-12] MEDS ORDERED: fentaNYL citrate 100 MCG/2 ML VIAL IV STA (15:50)
[2019-12-12] MEDS ORDERED: fentaNYL citrate 100 MCG/2 ML VIAL IV PRN (15:50)
[2019-12-12] MEDS ORDERED: PROMETHAZINE HCL 6.25 MG in SODIUM CHLORIDE 0.9% 50 ML IV PRN (15:50)
[2019-12-12] MEDS ORDERED: HYDROmorphone INJ 2 MG/ML SYR/VIAL IV PRN (15:50)
--- NOTE | 2019-12-12 15:52 | Anesthesiology Progress Note ---
Date of Service December 12, 2019 Anesthesia Post Procedure Vital Signs Vital Signs: Temp Pulse Pulse Resp BP BP Pulse Ox 12/12/19 15:40 79 17 158/76 H 96 12/12/19 15:30 82 14 146/71 H 99 12/12/19 15:20 84 19 142/111 H 97 12/12/19 15:13 36.5 C 78 16 172/64 H 99 12/12/19 12:28 36.8 C 61 18 148/65 H 96 Pain Intensity Right Back: Pain Intensity: 0 Transfer of Care Handoff Completed per policy Notes Mental Status: alert / awake / arousable Patient Amnestic to Procedure: Yes Nausea / Vomiting: adequately controlled Pain: adequately controlled Airway Patency, RR, SpO2: stable & adequate BP & HR: stable & adequate Hydration State: stable & adequate Anesthetic Complications: no major complications apparent
[2019-12-12] MEDS ORDERED: SOD PHOSPHATE/SOD BIPHOSPHATE ENEMA 132 ML BTL PR PRN (16:25)
[2019-12-12] MEDS ORDERED: bisacodyL 10 MG SUPP PR PRN (16:25)
[2019-12-12] MEDS ORDERED: ONDANSETRON 4 MG OD TAB PO PRN (16:25)
[2019-12-12] MEDS ORDERED: ALUMINUM/MAGNESIUM SUSP 30 ML UDC PO PRN (16:25)
[2019-12-12] MEDS ORDERED: HYDROmorphone INJ 1 MG/ML SYRINGE IV PRN (16:25)
[2019-12-12] MEDS ORDERED: LORazepam 0.5 MG TAB PO PRN (16:25)
[2019-12-12] MEDS ORDERED: METOCLOPRAMIDE HCL INJ 5 MG/ML 2 ML VIAL IV PRN (16:25)
[2019-12-12] MEDS ORDERED: DO NOT ADMINISTER PNEUMOCOCCAL VACCINE PRN (16:25)
[2019-12-12] MEDS ORDERED: LORazepam 0.5 MG/1 ML VIAL IV PRN (16:25)
[2019-12-12] MEDS ORDERED: MAGNESIUM HYDROXIDE SUSP 30 ML UDC PO PRN (16:25)
[2019-12-12] MEDS ORDERED: NALOXONE HCL 0.4 MG/1 ML VIAL/CARP IV PRN (16:25)
[2019-12-12] MEDS ORDERED: ACETAMINOPHEN 500 MG TAB PO PRN (16:25)
[2019-12-12] MEDS ORDERED: HYDROmorphone INJ 0.5 MG/0.5 ML SYR IV PRN (16:25)
[2019-12-12] MEDS ORDERED: PROMETHAZINE HCL 12.5 MG in SODIUM CHLORIDE 0.9% 50 ML IV PRN (16:25)
[2019-12-12] MEDS ORDERED: ACETAMINOPHEN 1,000 MG/100 ML VIAL IV PRN (16:25)
[2019-12-12] MEDS ORDERED: TRAMADOL HCL 50 MG TABLET PO PRN (16:25)
[2019-12-12] MEDS ORDERED: DO NOT ADMINISTER FLU VACCINE PRN (16:25)
[2019-12-12] MEDS ORDERED: FAMOTIDINE 20 MG TAB PO PRN (16:25)
[2019-12-12] MEDS: SODIUM CHLORIDE 0.9% 1000ML 1,000 ML IV SCH (17:11)
--- NOTE | 2019-12-12 17:27 | Consultation ---
Date of Consultation December 12, 2019 Assessment & Plan (1) Lumbar stenosis with neurogenic claudication: Post op diagnosis: Lumbar Spinal Stenosis with Neurogenic Claudication L3-S1; Previous Fusion L4-S Operation Date: 12/12/19 13:25 Actual Procedures #1 removal of posterior instrumentation L4-L5 and S1 bilaterally. #2 exploration of fusion L4-5 L5-S1. #3 lumbar decompression with bilateral medial facetectomies and foraminotomies L2-3 and L3-4. #4 posterior spinal fusion L3- 4. #5 placement posterior instrumentation L3-S1. #6 interbody fusion L3-4. #7 placement of peek cage 9 x 22 mm at L3-4. #8 placement locally harvested morselized autograft in the posterior lateral gutters #9 placement infuse collagen sponge combined master graft in the posterior lateral gutters and ostial amp interbody space. POD #0 EBL 80 mL's, TAM drain 30 mL Tolerated procedure well Pain/wound management per Ortho Activity and therapy as directed by Ortho Encourage incentive spirometry and wean oxygen as able Monitor H&H DVT prophylaxis per Ortho (2) Hypertension: BP controlled continue clonidine, enalapril, diltiazem and clonidine place parameters (3) Hypothyroidism: continue levothyroxine (4) Anxiety: continue citalopram mood is stable (5) Hot flash, menopausal: Patient is on estrogen therapy (6) GERD (gastroesophageal reflux disease): continue PPI (7) DVT prophylaxis: SCDS/TEDS, ASA Patient high risk for DVT given immobility and on estrogen replacement therapy Disposition: Per primary Follow-up: PCP Dr. Lion upon discharge Pt was seen and examined in collaboration with Dr. Riley, please see addendum Thank you for this consultation. We will follow the patient with you during their hospital stay. You can reach a [facility] via pager @ [phone]. Supervising Physician Co-Signing Physician Notes I saw this patient with the physician assistant statistician, I participated in the history, physical, review of systems, and physical exam. I reviewed the medications with the patient and the physician assistant statistician and helped reconcile the medications. I helped take a detailed family and social history as well. I formulated the assessment and plan personally with the physician assistant statistician and went over it with the patient. Physical Exam Gen-AAO x 3, NAD, Afebrile Head-NCAT, EOMI, PERRLA, Anicteric Sclera, No Posterior Pharyngeal Erythema Neck-Supple, No JVD, No Thyromegaly, No Masses, No LAD, No Bruits Lungs-Clear to Auscultation Bilaterally, No Rales, No Rhonchi, No Wheezing, No Crepitus Chest-No S4, +S1, +S2, No S3, No Murmurs, No Rubs, No Gallops, No Ectopy Abdomen-Soft, Bowel Sounds Present, Non Tender, Non Distended, No Hepatomegaly, No Splenomegaly, No Palpable Masses, No Rebound, No Rigidity, No Guarding Musculoskeletal-Full Range of Motion Bilaterally, No CVAT Extremities-No Cyanosis, No Clubbing, No Edema Nuero-Cranial Nerves II-XII grossly intact, Motor WNL, DTRs WNL, Strength WNL, Non Focal Psych-Normal Mood History of Present Illness Requesting Physician: Dr. Olguin Reason for Consultation: Postop medical management Attending Physician: Mat Olguin, History of Present Illness This is a 69-year-old female who has significant PMH of HTN, hypothyroidism secondary to thyroidectomy, anxiety, GERD, chronic back pain, tobacco abuse who presents for elective lumbar procedure by Dr. Olguin. She underwent L3-L5 decompression fusion and tolerated the procedure well. We have been consulted for postop medical management. Her P[facility] is [facility]. Postoperatively she does complain of incisional back pain but denies any radicular symptoms including pain radiating to lower extremities, numbness or tingling. Prior to procedure she was having significant low back pain with radiation to right thigh, "sharp stabbing nerve pain." This has since resolved. Currently she denies any fever, chills, sweats, lightheadedness, dizziness, chest pain, shortness breath, cough, nausea, vomiting, abdominal pain. She last moved her bowels yesterday. Currently has Martinez catheter in place. Currently is on oxygen postoperatively but does not use oxygen at home. She does have history of tobacco abuse smoking half a pack a day for 37 years. In regards to her hypertension currently she is well controlled on multidrug regimen. Allergies Allergy/AdvReac Type Severity Reaction Status Date / Time No Known Allergies Allergy Unverified 12/12/19 12:25 Home Medications Home Medications Medication Instructions Recorded Confirmed Type acetaminophen 650 mg PO Q12H 12/08/19 12/12/19 History aspirin [Aspirin Low Dose] 81 mg PO HS 12/08/19 12/12/19 History calcium carbonate-vitamin D3 1 tab PO BID 12/08/19 12/12/19 History [Calcium 500 + D] citalopram 20 mg PO QAM 12/08/19 12/12/19 History clonidine HCl 0.1 mg PO BID 12/08/19 12/12/19 History diclofenac sodium 75 mg PO BID 12/08/19 12/12/19 History diltiazem HCl 120 mg PO BID 12/08/19 12/12/19 History diphenhydramine HCl 25 mg PO BID 12/08/19 12/12/19 History enalapril maleate 20 mg PO BID 12/08/19 12/12/19 History estradiol 1 mg PO DAILY 12/08/19 12/12/19 History fluticasone propionate [Flonase 2 spray INTRANASAL QAM 12/08/19 12/12/19 History Allergy Relief] levothyroxine 125 mcg PO QAM 12/08/19 12/12/19 History omeprazole 40 mg PO QAM 12/08/19 12/12/19 History oxycodone 5 mg PO BID PRN 12/08/19 12/12/19 History Patient History Medical History Anxiety Chronic back pain Degenerative disc disease Depression GERD (gastroesophageal reflux disease) Hx of basal cell carcinoma Hx of squamous cell carcinoma of skin Hx of thyroid cancer Hypertension Hypothyroidism Surgical History History of cataract surgery bilateral History of colonoscopy History of surgical removal of skin lesion History of thyroidectomy, subtotal S/P epidural steroid injection S/P lumbar spinal fusion S/P radioactive iodine thyroid ablation S/P ZEE-BSO Family History Brother Diabetes Sister Diabetes Social History (Updated 12/12/19 @ 17:25 by Sabrina Rubio PA-C) Preferred Language: Belarusian Communication Ability: Effective Grommet Man Required: No Beliefs That Will Affect Care: None Current Living Situation: Spouse Other Information That Helps Us Care for You: No Feels Safe at Home: Yes Safety Concerns: Feels Safe At This Time Smoking Status: Current every day smoker Tobacco Type: cigarettes ; Years Smoked: 37 ; Cigarettes Per Day: 10 ; Do You Dip or Chew Tobacco: No ; Second Hand Exposure: Yes ; Tobacco Cessation Education Requested by Patient: No Hx Alcohol Use: No Hx Substance Use: No Review of Systems Review of Systems: All systems reviewed & are unremarkable except as noted in HPI & below Physical Exam Physical Exam: Constitutional: WD/WN, vitals as above, NAD, lying in bed, pleasant, conversing easily Head: Normocephalic, Atraumatic Eyes: PERRL, conjunctivae normal, anicteric sclerae ENMT: external ear and nose normal, oropharynx normal Neck: trachea midline, no thyromegaly normal visual inspection Respiratory: on 2L O2 via NC, normal respiratory effort, lungs clear to auscultation, no wheeze, rales, rhonchi. Normal insp/exp effort, no accessory muscle use Cardiovascular: RRR, no murmur, no edema, SCDS/TEDS in place Vessels: no JVD or carotid bruit Chest: normal inspection of chest Abdomen: normal bowel sounds, soft, nontender, no hepatosplenomegaly Musculoskeletal: no cyanosis or clubbing, extremities motor strength 5/5 upper extremity, active range of motion to lower extremity, strength not assessed given recent procedure, NVI distally,, lumbar dressing CDI TAM drain in place with serosanguineous drainage Skin: no rashes, warm and dry normal turgor Neurologic: PERRL, EOMI, accommodation nl, no face palsy, no dysarthria CN's II-XI intact bilaterally and moves all extremities Psychiatric: A+Ox3, euthymic affect Lymphatic: no cervical or axillary lymphadenopathy : Martinez catheter in place draining clear yellow urine Results & Data ([facility]) Vital Signs (Past 12 Hours) Vital Signs Temp Pulse Pulse Resp BP BP Pulse Ox 12/12/19 17:01 36.4 C L 93 H 18 126/69 93 12/12/19 16:26 36.8 C 79 18 125/63 93 12/12/19 16:10 36.4 C L 85 14 133/71 94 12/12/19 16:00 70 12 144/87 H 93 12/12/19 15:50 72 17 141/68 H 93 12/12/19 15:40 79 17 158/76 H 96 12/12/19 15:30 82 14 146/71 H 99 12/12/19 15:20 84 19 142/111 H 97 12/12/19 15:13 36.5 C 78 16 172/64 H 99 12/12/19 12:28 36.8 C 61 18 148/65 H 96 Laboratory Results Preoperative labs: COVID-19 testing done on 12/06 and was negative 11/29/2019 revealed H&H 13.4 and 38.5, WBC 7.09, platelet 183, sodium 140, K3.7, BUN 16, creatinine 0.63, glucose 81 Urinalysis negative Diagnostic Findings Chest x-ray on 11/29/2019 revealed no acute disease Lumbar Spine: IMPRESSION: Image intensifier support for hardware removal and decompression and fusion Medications Administered Acetaminophen (Tylenol) 1,000 mg PO PREOP DEEPA Stop: 12/12/19 18:00 Last Admin: 12/12/19 12:57 Dose: 1,000 mg Documented by: [id number] Celecoxib (Celebrex) 200 mg PO PREOP DEEPA Stop: 12/12/19 18:00 Last Admin: 12/12/19 12:57 Dose: 200 mg Documented by: [id number] Gabapentin (Neurontin) 300 mg PO PREOP DEEPA Stop: 12/12/19 18:00 Last Admin: 12/12/19 12:57 Dose: 300 mg Documented by: [id number] Lactated Ringer's (Lr) 1,000 mls @ 15 mls/hr IV .Q24H DEEPA Stop: 12/13/19 05:59 Last Infusion: 12/12/19 13:06 Dose: 0 mls/hr Documented by: [id number] Admin: 12/12/19 12:56 Dose: 15 mls/hr Documented by: [id number] Cefazolin Sodium (Ancef 1000mg) 1,000 mg in 7.5 mls @ 2.5 mls/min IV PREOP DEEPA; Protocol Stop: 12/12/19 18:00 Last Admin: 12/12/19 13:05 Dose: 2.5 mls/min Documented by: [id number] Sodium Chloride (Nss 1000ml) 1,000 mls @ 100 mls/hr IV .Q10H [facility] Stop: 01/11/20 16:24 Last Admin: 12/12/19 17:11 Dose: 100 mls/hr Documented by: [id number] Discontinued Medications Bacitracin (Bacitracin) Confirm Administered Dose 50,000 units .ROUTE .STK-MED ONE Stop: 12/12/19 12:47 Last Admin: 12/12/19 13:43 Dose: 50,000 units Documented by: [id number] Bupivacaine HCl (Marcaine 0.5% Mpf) Confirm Administered Dose 30 ml .ROUTE .STK- MED ONE Stop: 12/12/19 12:47 Last Admin: 12/12/19 13:43 Dose: 25 ml Documented by: [id number] Epinephrine HCl (Epinephrine) Confirm Administered Dose 1 mg .ROUTE .STK-MED ONE Stop: 12/12/19 12:48 Last Admin: 12/12/19 13:44 Dose: 0.15 mg Documented by: [id number] Fentanyl Citrate (Fentanyl Citrate) Confirm Administered Dose 100 mcg .ROUTE .STK-MED ONE Stop: 12/12/19 15:46 Last Increment: 12/12/19 15:52 Dose: 50 mcg Documented by: [id number] Increment: 12/12/19 15:47 Dose: 50 mcg Documented by: [id number] Fentanyl Citrate (Fentanyl Citrate) 50 mcg IV NOW STA Stop: 12/12/19 15:51 Last Admin: 12/12/19 17:03 Dose: Not Given Documented by: [id number] Miscellaneous (Floseal Hemostatic Matrix 10ml) 10 ml TOP ONCE ONE Stop: 12/12/19 14:06 Last Admin: 12/12/19 14:48 Dose: 6 ml Documented by: [id number] ECG Rate (beats per minute): 68 Rhythm: normal sinus
[2019-12-12] MEDS: ASPIRIN 81 MG ECTAB PO SCH (21:29)
[2019-12-12] MEDS: CALCIUM 600MG + VIT D 400 IU TAB PO SCH (21:29)
[2019-12-12] MEDS: cloNIDine HCL 0.1 MG TAB PO SCH (21:29)
[2019-12-12] MEDS: CEFAZOLIN 1000MG 1,000 MG/7.5 ML SYR IV SCH (21:30)
[2019-12-12] MEDS: ENALAPRIL MALEATE 10 MG TAB PO SCH (21:30)
[2019-12-12] MEDS: DOCUSATE SODIUM/SENNA 50/8.6MG TAB PO SCH (21:30)
[2019-12-12] MEDS: OXYCODONE HCL IR 5 MG TAB (IMMEDIATE RELEASE) PO PRN (23:32)
[2019-12-13] MEDS: OXYCODONE HCL IR 5 MG TAB (IMMEDIATE RELEASE) PO PRN ×4 (03:31→21:39)
[2019-12-13] MEDS: SODIUM CHLORIDE 0.9% 1000ML 1,000 ML IV SCH (03:34)
[2019-12-13] MEDS: POLYETHYLENE (MIRALAX) 17 GM PACK PO SCH ×3 (05:35→18:42)
[2019-12-13] MEDS: CEFAZOLIN 1000MG 1,000 MG/7.5 ML SYR IV SCH (05:36)
[2019-12-13] MEDS: LEVOTHYROXINE SODIUM 125 MCG TABLET PO SCH (05:36)
[2019-12-13 05:40] LABS: Hemoglobin 11.8 g/dL (12.0-16.0); Immature Granulocytes # (auto) 0.02 K/uL (0.00-0.02); Immature Granulocytes % (auto) 0.2 %; Lymphocytes # (auto) 0.79 K/uL (1.2-3.4); Lymphocytes % (auto) 8.3 %; Mean Corpuscular Hemoglobin 32.5 pg (25-34); Mean Corpuscular Hgb Conc 33.7 g/dL (32-36); Mean Corpuscular Volume 96.4 fL (80-100); Mean Platelet Volume 8.4 fL (7.4-10.4); Monocytes # (auto) 0.57 K/uL (0.11-0.59); Neutrophils # (auto) 8.16 K/uL (1.4-6.5); Neutrophils % (auto) 85.5 %; Platelet Count 205 K/uL (130-400); RDW Coefficient of Variation 13.4 % (11.5-14.5); RDW Standard Deviation 47.4 fL (36.4-46.3); Red Blood Count 3.63 M/uL (4.2-5.4); White Blood Count 9.54 K/uL (4.8-10.8)
[2019-12-13 06:20] LABS: BUN Creatinine Ratio 14.1 (10-20); Calcium 8.1 mg/dl (8.5-10.1); Creatinine Clr Calc Pharmacy 92.4 ml/min; Est GFR (African American) 112.9; Est GFR (Non-African American) 97.4; Potassium 3.7 mmol/L (3.5-5.1)
--- NOTE | 2019-12-13 07:40 | Anesthesiology Progress Note ---
Date of Service December 13, 2019 Anesthesia Post Procedure Vital Signs Vital Signs: Temp Pulse Pulse Resp BP BP Pulse Ox 12/13/19 07:27 36.7 C 74 16 135/71 94 12/13/19 03:54 36.7 C 67 15 149/79 H 92 12/13/19 00:40 36.8 C 80 14 129/79 90 12/12/19 21:28 88 131/74 12/12/19 19:21 36.9 C 90 18 127/70 92 12/12/19 18:29 37.1 C 90 18 145/73 H 93 12/12/19 17:26 37.1 C 77 18 116/68 95 12/12/19 17:01 36.4 C L 93 H 18 126/69 93 12/12/19 16:26 36.8 C 79 18 125/63 93 12/12/19 16:10 36.4 C L 85 14 133/71 94 12/12/19 16:00 70 12 144/87 H 93 12/12/19 15:50 72 17 141/68 H 93 12/12/19 15:40 79 17 158/76 H 96 12/12/19 15:30 82 14 146/71 H 99 12/12/19 15:20 84 19 142/111 H 97 12/12/19 15:13 36.5 C 78 16 172/64 H 99 12/12/19 12:28 36.8 C 61 18 148/65 H 96 Pain Intensity Right Back: Pain Intensity: 5 Notes Mental Status: alert / awake / arousable and participated in evaluation Patient Amnestic to Procedure: Yes Nausea / Vomiting: adequately controlled Pain: adequately controlled Airway Patency, RR, SpO2: stable & adequate BP & HR: stable & adequate Hydration State: stable & adequate Anesthetic Complications: no major complications apparent
[2019-12-13] MEDS: PANTOprazole 40 MG TAB PO SCH (08:51)
[2019-12-13] MEDS: CALCIUM 600MG + VIT D 400 IU TAB PO SCH ×2 (08:51→21:40)
[2019-12-13] MEDS: cloNIDine HCL 0.1 MG TAB PO SCH ×2 (08:52→22:34)
[2019-12-13] MEDS: CITALOPRAM 20 MG TAB PO SCH (08:52)
[2019-12-13] MEDS: ENALAPRIL MALEATE 10 MG TAB PO SCH ×2 (08:52→22:34)
[2019-12-13] MEDS: FLUTICASONE PROPIONATE NA SPR 16 GM BTL SCH (08:53)
--- NOTE | 2019-12-13 10:09 | Hospitalist Progress Note ---
Date of Service December 13, 2019 Assessment & Plan (1) Lumbar stenosis with neurogenic claudication: Post op diagnosis: Lumbar Spinal Stenosis with Neurogenic Claudication L3-S1; Previous Fusion L4-S Operation Date: 12/12/19 13:25 Actual Procedures #1 removal of posterior instrumentation L4-L5 and S1 bilaterally. #2 exploration of fusion L4-5 L5-S1. #3 lumbar decompression with bilateral medial facetectomies and foraminotomies L2-3 and L3-4. #4 posterior spinal fusion L3- 4. #5 placement posterior instrumentation L3-S1. #6 interbody fusion L3-4. #7 placement of peek cage 9 x 22 mm at L3-4. #8 placement locally harvested morselized autograft in the posterior lateral gutters #9 placement infuse collagen sponge combined master graft in the posterior lateral gutters and ostial amp interbody space. EBL 80 mL's, TAM drain 30 mL Tolerated procedure well Resume Post Op Care per Surgery Protocol Incentive Spirometry 10x per Hour Resume Relative Home Meds Where Appropriate PT/OT with appropriate fall precautions Transition from IV to PO Pain control DVT Prophylaxis Per Surgery Protocol Monitor Daily Labs ROS-No Headache, No Visual Changes, No Nausea, No Vomiting, No Fever, No Chills, No Neck Pain or Stiffness, No Chest Pain, No Palpitations, No SOB, No POLLARD, No Cough, No Sputum, No Wheezing, No Abdominal Pain, No Diarrhea, No Hematemesis, No Hemoptysis, No Unexpected Weight Loss, No Flank pain, No Melena, No Hematochezia, No Frequency, No Urgency, No Burning, No Hematuria, No Rashes, No Diaphoresis. Appetite is Normal, Sore Back Physical Exam Gen-AAO x 3, NAD, Afebrile Head-NCAT, EOMI, PERRLA, Anicteric Sclera, No Posterior Pharyngeal Erythema Neck-Supple, No JVD, No Thyromegaly, No Masses, No LAD, No Bruits Lungs-Clear to Auscultation Bilaterally, No Rales, No Rhonchi, No Wheezing, No Crepitus Chest-No S4, +S1, +S2, No S3, No Murmurs, No Rubs, No Gallops, No Ectopy Abdomen-Soft, Bowel Sounds Present, Non Tender, Non Distended, No Hepatomegaly, No Splenomegaly, No Palpable Masses, No Rebound, No Rigidity, No Guarding Musculoskeletal-Full Range of Motion Bilaterally, No CVAT Extremities-No Cyanosis, No Clubbing, No Edema Nuero-Cranial Nerves II-XII grossly intact, Motor WNL, DTRs WNL, Strength WNL, Non Focal Psych-Normal Mood Admission and Anticipated Discharge Date Admission Date: December 12, 2019 Results & Data Results & Data ([facility]) Vital Signs (Past 12 Hours) Vital Signs Temp Pulse Resp BP BP Pulse Ox 12/13/19 08:55 82 133/76 95 12/13/19 07:27 36.7 C 74 16 135/71 94 12/13/19 03:54 36.7 C 67 15 149/79 H 92 12/13/19 00:40 36.8 C 80 14 129/79 90
[2019-12-13] MEDS: estradioL 1 MG TAB PO SCH (10:41)
--- NOTE | 2019-12-13 11:00 | Orthopedic Progress Note ---
Date of Service December 13, 2019 Assessment & Plan (1) Lumbar stenosis with neurogenic claudication: This time we will continue physical therapy monitor TAM operatively discharge home in the next few days. Present on Admission?: Yes Admission and Anticipated Discharge Date Admission Date: December 12, 2019 Subjective Patient's back pain is controlled leg pain markedly improved. Physical Exam Physical Exam: Patient is comfortable in bed. Has good strength testing. Results & Data ([facility]) Vital Signs (Past 12 Hours) Vital Signs Temp Pulse Resp BP BP Pulse Ox 12/13/19 08:55 82 133/76 95 12/13/19 07:27 36.7 C 74 16 135/71 94 12/13/19 03:54 36.7 C 67 15 149/79 H 92 12/13/19 00:40 36.8 C 80 14 129/79 90
[2019-12-13] MEDS: ASPIRIN 81 MG ECTAB PO SCH (21:40)
[2019-12-13] MEDS: DOCUSATE SODIUM/SENNA 50/8.6MG TAB PO SCH (21:40)
[2019-12-14] MEDS: POLYETHYLENE (MIRALAX) 17 GM PACK PO SCH ×2 (00:31→05:33)
[2019-12-14] MEDS: LEVOTHYROXINE SODIUM 125 MCG TABLET PO SCH (05:32)
[2019-12-14] MEDS: OXYCODONE HCL IR 5 MG TAB (IMMEDIATE RELEASE) PO PRN ×2 (05:37→10:37)
[2019-12-14 06:09] LABS: Hematocrit (blood only) 33.5 % (37-47); Hemoglobin 11.2 g/dL (12.0-16.0); Mean Corpuscular Hemoglobin 32.5 pg (25-34); Mean Corpuscular Hgb Conc 33.4 g/dL (32-36); Mean Corpuscular Volume 97.1 fL (80-100); Mean Platelet Volume 8.6 fL (7.4-10.4); Platelet Count 197 K/uL (130-400); RDW Standard Deviation 49.9 fL (36.4-46.3); Red Blood Count 3.45 M/uL (4.2-5.4); White Blood Count 8.58 K/uL (4.8-10.8)
[2019-12-14 06:47] LABS: BUN Creatinine Ratio 11.5 (10-20); Calcium 8.2 mg/dl (8.5-10.1); Creatinine Clr Calc Pharmacy 88.9 ml/min; Est GFR (African American) 111.5; Est GFR (Non-African American) 96.2; Potassium 3.1 mmol/L (3.5-5.1)
[2019-12-14] MEDS ORDERED: POTASSIUM CHLORIDE 20 MEQ TABCR PO STA (08:54)
--- NOTE | 2019-12-14 08:58 | Hospitalist Progress Note ---
Date of Service December 14, 2019 Assessment & Plan (1) Status post lumbar surgery: Post op day# 2 S/P removal of posterior instrumentation L4-L5 and S1 bilaterally and decompression fusion L3-L4 by Dr Olguin. EBL#80ml. Total drain output over past 24 hours 190ml Post op doing well -pain management per ortho -wound management per ortho -bowel regimen -PT/OT as appropriate -DVT prophylaxis per ortho -incentive spirometry -hgb: stable at 11.2 today. Was 11.8 yesterday and 13 pre-op. (2) Hypokalemia: K: 3.1. Pt with decreased oral intake as reports not interested in hospital food -Replace and monitor -Suggest outpatient BMP in 1-2 weeks for follow up (3) Hypertension: Stable -Continue clonidine, enalapril, diltiazem and clonidine (4) Hypothyroidism: -Continue levothyroxine (5) Anxiety: Stable -Continue citalopram (6) GERD (gastroesophageal reflux disease): -Continue PPI (7) Hot flash, menopausal: On estrogen therapy DVT Prophylaxis -SCDs, aspirin per ortho Disposition per primary service Would recommend follow up with PCP post discharge Pt was seen and care coordinated with Dr Cedeno. See addendum Admission and Anticipated Discharge Date Admission Date: December 12, 2019 Supervising Physician Co-Signing Physician Notes Patient seen and examined by me, care coordinated with ELEANOR Mejía. Please refer to her note above for more details. Patient is sitting up in bed, in no acute distress. She denies any chest pain, shortness of breath, dizziness, fevers, chills. Back pain seems to be controlled with medications. Denies any abdominal pain, ambulating. Heart rates regular, lungs clear to auscultation bilaterally, abdomen soft nontender nondistended, positive bowel sounds. Patient is alert and oriented and answers questions appropriately. Patient moves extremities spontaneously without difficulty. Skin is warm dry well-perfused. Plan to discharge home per orthopedics today. Hemoglobin stable at 11.2. Potassium low this morning, replaced. Recommended to recheck potassium in 1 week and follow-up with PCP in 1 week. Patient in agreement. MD Lziette Subjective Pt seen and examined. Noted to be ambulating in exam room. Pt reports doing well. Having some pain with getting up out of bed, otherwise ambulating without difficulty. Denies extremity pain or weakness. Reports not eating much as she isn't a fan of hospital food. Is drinking plenty of fluids. Reports had small BM. Urinating without difficulty. Denies fever/chills, diaphoresis, N/V, [place], dizziness, syncope, vision changes, neck pain, CP, SOB, orthopnea, palpitations, cough, sore throat, choking, otalgia, rhinorrhea, abdominal pain, paresthesias, extremity edema, rashes, urinary symptoms. Review of Systems Review of Systems: All systems reviewed & are unremarkable except as noted in HPI & below Physical Exam Physical Exam: General: no distress, WDWN Head: normocephalic, atraumatic Eyes:conjunctiva non-injected, anicteric ENT: normal inspection external ears, nose, mucous membranes moist Neck: supple, trachea midline Lungs: clear, no respiratory distress, no wheezing/rhonchi/rales CV: RRR, no murmur, no pretibial edema Abd: normal BS, soft, non-tender Back: dressing in place Ext: no cyanosis, no calf tenderness; ROM BLE intact, distal pulses intact, sensation to light touch intact Neuro: A&O x 3, no focal deficits noted, normal affect Skin: warm, dry Results & Data Results & Data ([facility]) Vital Signs (Past 12 Hours) Vital Signs Temp Pulse Pulse Resp BP BP Pulse Ox 12/14/19 07:35 36.8 C 68 20 156/72 H 94 12/14/19 07:12 37.0 C 74 18 153/73 H 91 12/14/19 00:04 37.0 C 69 14 130/68 92 12/13/19 22:33 70 136/70 12/13/19 21:36 36.8 C 70 18 147/76 H 12/13/19 21:13 36.8 C 63 18 144/74 H 92 Laboratory Results Short CBC 12/14/19 Range/Units 05:10 WBC 8.58 (4.8-10.8) K/uL Hgb 11.2 L (12.0-16.0) g/dL Hct 33.5 L (37-47) % Plt Count 197 (130-400) K/uL BMP 12/14/19 05:10 Sodium 142 Potassium 3.1 L D Chloride 109 H Carbon Dioxide 29 BUN 6 L Creatinine 0.53 L Glucose 85 Calcium 8.2 L
[2019-12-14] MEDS ORDERED: DEXAMETHASONE SOD PHOSPHATE 6 MG in SYRINGE 0 ML IV SCH (09:00)
[2019-12-14] MEDS: cloNIDine HCL 0.1 MG TAB PO SCH ×2 (09:06→09:13)
[2019-12-14] MEDS: ENALAPRIL MALEATE 10 MG TAB PO SCH ×2 (09:06→09:13)
[2019-12-14] MEDS: CALCIUM 600MG + VIT D 400 IU TAB PO SCH (09:07)
[2019-12-14] MEDS: CITALOPRAM 20 MG TAB PO SCH (09:07)
[2019-12-14] MEDS: PANTOprazole 40 MG TAB PO SCH (09:08)
[2019-12-14] MEDS: FLUTICASONE PROPIONATE NA SPR 16 GM BTL SCH (09:08)
[2019-12-14] MEDS: estradioL 1 MG TAB PO SCH (09:09)
--- NOTE | 2019-12-14 09:59 | Discharge Summary ---
Date of Service December 14, 2019 Admission HPI Per Admitting Provider This is a 69-year-old female well-known to me that presents with worsening back and leg pain with weakness. Subsequently she is here for surgical intervention. Principal Diagnosis Lumbar spinal stenosis with neurogenic claudication Discharge Data Allergies Allergy/AdvReac Type Severity Reaction Status Date / Time No Known Allergies Allergy Unverified 12/12/19 12:25 Consultations 12/12/19 16:25 Consult Case Management - Discharge Planning Routine Consult Hospitalist Routine Procedures Performed Operation Date: 12/12/19 13:25 Actual Procedures p L3-L4 Decompression, L3-L5 Fusion, Interbody Fusion L3-L4, with Bone Morphogenetic Protein, Application of Osteamp Allograft, Spinal Cord Monitoring(Not Applicable) - Mat Olguin DO s L4-S1 Hardware Removal(Not Applicable) - Mat Olguin DO Ordered Studies 12/12/19 13:25 FL fluoroscopy <1hr Routine FL lumbar spine 2-3V Routine Hospital Course (1) Lumbar stenosis with neurogenic claudication: Patient underwent lumbar decompression fusion troll as well as taken to the orthopedic floor postoperatively postop day 1 she was up and ambulating progressed the postop day 2 strength intact TAM drain decreased probably. Pain well controlled. Subsequently discharged home. Discharge orders and instructions were on the chart for further review. Total Time Total Time Spent Total Time Spent (In Minutes): 20 minutes Discharge Plan Discharge Items Patient Disposition: Home - Self-Care Reason For Visit: LUMBAR SPINAL STENOSIS WO NEUROGENIC CLAUDICATION Discharge Diagnosis: Lumbar spinal stenosis with neurogenic claudication Activity: As commented below Non-emergency contact: Primary Care Provider Call non-emergency contact if: you have any medication questions Follow-up/Referrals: Alejandro Pang DO [Primary Care Provider] - Diet: Regular Addtl Attending Provider Instructions: ACTIVITY RECOMMENDATIONS: SELF CARE INSTRUCTIONS AFTER THORACIC/LUMBAR FUSIONS 1. You may walk to your tolerance. It is good exercise for your legs and back. Expect some back and intermittent leg aches and pains. 2. You may perform "counter-top" level activities (make a sandwich, marcello with a project, etc.). 3. No bending or lifting of more than 10 pounds or back twisting of any nature (roll like a log when turning in bed). 4. You may ride in a car for 20-30 minutes at a time. No driving until after your first visit with your doctor. 5. Frequent changes of position and restricting sitting to 30 minutes at a time will help limit the amount of back spasms and stiffness you may experience. 6. You may discontinue the use of ambulatory aids (cane, crutches, etc.) once your strength and confidence allow. 7. You may java web user interface developer the shower and let water strike your incision when you arrive home at least once daily. Do not take a tub bath, sit in a hot tub or go into a swimming pool until after your first recheck in the office. SPECIAL CARE INSTRUCTIONS: VERY IMPORTANT TO READ AND REVIEW A. Your surgical incision has been closed with a cosmetic suture under the skin that will dissolve in about 6 weeks. In 14 days, you can use a pair of clean scissors and cut the suture that is left outside of the skin at the ends of your incision. 1. The small skin tapes can be removed 7 days after surgery if they have not fallen off by that point. 2. You may keep the wound open to air as much as possible to promote healing after post-op day number 5 unless told otherwise by your doctor. 3. If you think the wound looks like it is becoming infected (redness or worsening drainage) and/or you are experiencing fever, chill or worsening back pain and muscle spasms, contact the office so that we may evaluate you as soon as possible. B. Complications are uncommon, but please contact us if you have any signs or symptoms of: 1. wound infection (fever higher than 102.5 degrees F, redness, separation of wound, drainage, or increasing pain from the incision) 2. blood clots in legs (pain, swelling, redness and warmth in legs) 3. urinary tract infection (fever higher than 102.5 degrees F, burning upon urination or increased frequency of urination) 4. nerve problems (inability to walk on your toes or heels, numbness, loss of bowel or bladder control) 5. any other symptoms that concern you C. Please call the office at if you have any concerns or questions about your operation or recovery. D. No smoking! Smoking drastically decreases the chance of a solid fusion. E. Do not take any anti-inflammatory medications (Indocin, Advil, Motrin, Aspirin, Naprosyn, etc.) as these may inhibit the chance of a solid fusion. Tylenol is okay to take for pain. MANAGING PAIN AFTER SPINAL SURGERY 1. Narcotic medication is intended for short-term use and will be provided for surgical pain. Surgical pain usually lasts for a period of 4-6 weeks. Narcotic medication includes Percocet, Vicodin, Darvocet, Tylenol #3 or Lortab. 2. Longer-term pain is more appropriately treated with non-narcotic medication such as Tylenol ES. 3. Muscle spasm is not appropriately treated with narcotics. Muscle relaxers such as Soma, Flexeril or Skelaxin can be used along with Tylenol ES. 4. Remember that we all live with some "aches and pains". This is not unusual or uncommon after an injury or as we get older. a. Back pain is expected and may include muscle spasms for 4 to 6 weeks after surgery. The pain should gradually improve. If the pain worsens for no apparent reason, please contact the office. b. Intermittent leg pain may also be experienced and should not be concerned about unless it worsens for no apparent reason. If so, please contact the office. 5. We will provide appropriate medication within the normal guidelines of their prescribed use. We will also be very cautious and aware of potential abuse and extended duration of patients' medication needs. a. Pain medications are for your comfort and to assist with sleep and rest so that the tissue can heal. They are not provided in order to return to normal activity and should not be used through the day. To do so or worsening pain at night can result from ongoing tissue damage and development of tolerance to the prescribed medicine. 6. Please allow 2-3 days to process refills. Prescriptions will not be mailed but must be picked up at the office. FOLLOW UP VISIT: Keep your scheduled follow-up appointment. Any questions, please call the office at . Pending Studies at Discharge: No Stand-Alone Forms: [employer], Smoking Cessation Medications and DC Order Prescriptions: New oxycodone 5 mg tablet 5 mg PO Q6H PRN (Reason: pain, severe) Qty: 20 RF: 0 tramadol 50 mg tablet 50 mg PO Q6H PRN (Reason: pain, moderate) Qty: 30 RF: 0 Continued clonidine HCl 0.1 mg Tablet 0.1 mg PO BID RF: 0 enalapril maleate 20 mg Tablet 20 mg PO BID RF: 0 aspirin [Aspirin Low Dose] 81 mg Tablet,Delayed Release (Dr/Ec) 81 mg PO HS RF: 0 acetaminophen 650 mg Tablet Extended Release 650 mg PO Q12H RF: 0 diltiazem HCl 120 mg Capsule,Extended Release 12 Hr 120 mg PO BID RF: 0 citalopram 20 mg Tablet 20 mg PO QAM RF: 0 estradiol 1 mg Tablet 1 mg PO DAILY RF: 0 levothyroxine 125 mcg Tablet 125 mcg PO QAM RF: 0 fluticasone propionate [Flonase Allergy Relief] 50 mcg/actuation [place],Suspension 2 spray INTRANASAL QAM RF: 0 oxycodone 5 mg Tablet 5 mg PO BID PRN (Reason: Pain) RF: 0 calcium carbonate-vitamin D3 [Calcium 500 + D] 500 mg(1,250mg) -400 unit Tablet 1 tab PO BID RF: 0 omeprazole 20 mg Tablet,Delayed Release (Dr/Ec) 40 mg PO QAM RF: 0 diphenhydramine HCl 25 mg Tablet 25 mg PO BID RF: 0 Discontinued diclofenac sodium 75 mg Tablet,Delayed Release (Dr/Ec) 75 mg PO BID RF: 0 Discharge Orders: Discharge Order (Routine); Ordered 12/14/19 Ordered By: Mat Olguin Admission Data Admit Date/Time: 12/12/19 15:31 Attending Provider: Mat Olguin Admit Provider: Mat Olguin Primary Care Provider: Alejandro Pang Other Providers: Kiran Carolina ; Daniel Cedeno
[2019-12-14] MEDS ORDERED: POTASSIUM CHLORIDE 20 MEQ TABCR PO ONE (13:00)
== END 2019-12-14 12:01 | disposition home or self-care (01) | DRG 455 ==
LOC: ASU 11:37 → SUATTDRO 15:31 → 3E 15:31